=== PATIENT | male | born 1960 | race Two or more races ===

== ENCOUNTER 2017-03-31 08:28 | Outpatient (CLI) | payer OTHER ==
[~2017-03-31 08:28] MED LIST: AVAPRO300 MG PO; METFORMIN HCL500 MG PO
== END 2017-03-31 08:43 | disposition home or self-care (01) ==
LOC: RAD 08:28
DX: J44.9 Chronic obstructive pulmonary disease, unspecified (principal)

== ENCOUNTER → 2017-06-03 | Outpatient (CLI) | payer OTHER | END | disposition home or self-care (01) | LOC: RAD 12:46 | DX: I10 Essential (primary) hypertension (principal); J44.9 Chronic obstructive pulmonary disease, unspecified ==

== ENCOUNTER → 2017-06-03 | Outpatient (CLI) | payer OTHER | END | disposition home or self-care (01) | LOC: NUCLEAR 12:21 | DX: I10 Essential (primary) hypertension (principal); J44.9 Chronic obstructive pulmonary disease, unspecified ==

== ENCOUNTER 2025-01-25 12:45 | Outpatient (CLI) | payer OTHER | END 2025-01-25 12:47 | disposition home or self-care (01) | LOC: RAD 12:45 | PROVIDERS: ATTEND Internal Medicine Cardiovascular Disease | DX: M19.90 Unspecified osteoarthritis, unspecified site (principal) ==